=== PATIENT | male | born 1940 ===

== ENCOUNTER 2022-10-07 14:00 | Inpatient (IN) | payer MEDICARE, OTHER ==
[~2022-10-07] VITALS: Ht 177.8 cm; Wt 90.7 kg
[2022-10-07 10:00] VITALS: BP 143/75
[2022-10-07] MEDS ORDERED: REMEDY ESSENTIAL ZINC PASTE 113 GM TOP PRN (21:30)
--- NOTE | 2022-10-07 22:00 | NUR ---
Received a 82 yr old male from [facility] with an admitting diagnosis of S/P L5- S1 lumbar fusion with instrumentation on (09/28) and acute metabolic encepalopathy. AAOx3-4 with some periods of forgetfulness. All needs attended. VSS No acute distress noted. Voiding in the urinal. Low back incision clean dry and intact with dressing placed. Bilateral upper extremities has multiple bruises noted. Left arm has a skin tear with steristrips and dressing. Denies any pain nor any discomfort. Patient is hard of hearing, wears hearing aids. Patient has history of CAD, neuropathy, GERD, Anemia, Kidney Ca, HTN. Will monitor patient. Dr Nance aware of patient's admission and was able to reconcile meds. Dr Mackay also aware of patient's admission. Fall precautions maintained. Siderails up for safety.
[2022-10-07] MEDS ORDERED: MIRT7.5T10 PO (23:24)
[2022-10-07] MEDS ORDERED: DOCU100T2 PO (23:24)
[2022-10-07] MEDS ORDERED: ACET-73 PO (23:24)
[2022-10-07] MEDS ORDERED: SENN-18 PO (23:24)
[2022-10-07] MEDS ORDERED: CARI350T27 PO (23:24)
[2022-10-07] MEDS ORDERED: CHLO50TA13 PO (23:24)
[2022-10-07] MEDS ORDERED: IRBE300T19 PO (23:24)
[2022-10-07] MEDS ORDERED: OMEP20CA15 PO (23:24)
[2022-10-07] MEDS ORDERED: AMLO10TA59 PO (23:24)
[2022-10-07] MEDS ORDERED: HYDR-4209 PO (23:24)
[2022-10-07] MEDS ORDERED: POTA99TA16 PO (23:24)
[2022-10-07] MEDS ORDERED: LAMO150T2 PO (23:24)
[2022-10-07] MEDS ORDERED: MAG30ORA PO (23:24)
[2022-10-07] MEDS ORDERED: CLIN300C12 PO (23:24)
[2022-10-07] MEDS ORDERED: ONDA-104 PO (23:24)
[2022-10-07] MEDS ORDERED: chlorproMAZINE 25 MG TABLET PO PRN (23:30)
[2022-10-07] MEDS ORDERED: OXYCODONE HCL 5 MG TABLET PO PRN (23:45)
[2022-10-07] MEDS ORDERED: ACETAMINOPHEN 325 MG TABLET PO PRN (23:45)
[2022-10-08 04:36] VITALS: BP 144/58
[2022-10-08] MEDS: DOCUSATE SODIUM 250 MG CAPSULE PO SCH ×3 (06:57→17:28)
[2022-10-08] MEDS: CLINDAMYCIN HCL 300 MG CAPSULE PO SCH ×3 (06:57→21:08)
[2022-10-08 08:00] VITALS: BP 138/70
[2022-10-08] MEDS: LOSARTAN POTASSIUM 50 MG TABLET PO SCH (08:28)
[2022-10-08] MEDS: AMLODIPINE 10 MG TABLET PO SCH (08:29)
[2022-10-08] MEDS ORDERED: LAMOTRIGINE 100 MG TABLET PO SCH ×2 (09:00)
--- NOTE | 2022-10-08 09:36 | NUR ---
0730-Rec'd patient in bed, awake, A/Ox3, verbally communicative, on R/A, no respiratory distress/cough noted; patient denies pain. Bed side table at reach with all needed items in place. Fac. phone accessible to patient and in functioning order. Encouraged patient to use call light for help when needed with good understanding. Patient [place], uses hearing aids. 0900-Scheduled medication administered as ordered; regarding Lamictal, per patient he does not take generic form due to ASE, asked patient what side effects he has. Patient stated generic Lamictal takes his taste away and that he brought his own bottle of Lamictal. Pharmacy was notified Lamictal issues and per pharmacy will provide what patient brought. Lamotrigine/Lamictal extracted from Fac. Ommi was wasted. Pharmacy was notified.
[2022-10-08] MEDS ORDERED: CHOL400D8 PO (11:50)
[2022-10-08] MEDS ORDERED: BALS60OI TP (11:50)
[2022-10-08] MEDS ORDERED: NEOM28.38 TP (11:50)
[2022-10-08] MEDS: CHOLECALCIFEROL 1,000 UNIT TABLET PO SCH (12:10)
[2022-10-08] MEDS: LAMICTAL 150 MG PO SCH ×2 (12:29→17:43)
[2022-10-08] MEDS: BALSAM PERU/CASTOR OIL 60 GM OINT...G. TP SCH ×2 (12:30→17:44)
[2022-10-08] MEDS: NEOMY/BACITRAC/POLYMI OINT 28.35 GM TUBE TP SCH ×2 (12:30→17:44)
[2022-10-08 16:00] VITALS: BP 125/68
[2022-10-08] MEDS ORDERED: METOCLOPRAMIDE HCL 5 MG TABLET PO PRN (17:00)
[2022-10-08] MEDS: ONDANSETRON ODT 4 MG TAB.RAPDIS SL PRN (17:28)
--- NOTE | 2022-10-08 18:04 | NUR ---
Patient was evaluated by rehab for PT/OT skilled services, patient tolerated fairly. Assisted with ADLs and as needed through out the shift. Patient is alert and oriented. [place] & wears hearing aids, is forgetful and intermittent confusion. Reality orientation provided as needed; Patient is incontinent of urine, able to make needs known but not usually promptly or timely. Encouraged and assisted with the urinal & emptied as needed. Patient noted with on and off episodes of hiccups, medicated PRN with ThoraZine with minimal help. Daughter and son (Daryn Delgado) visiting patient during shift. Per daughter what seems to work for the hiccups is Zofran. Dr contreras notified and per MD gilliland to use zofran for hiccups and to DC Thorazine and Reglan. Orders noted and carried out. Patient was medicated PRN with Zofran and effective post reassessment. Assisted patient with ADLs through out the shift as needed. Care provided at routine intervals/PRN. Per Damian, to not interrupt patient during the night & to keep the door closed so he can sleep well. Instructed Damian that unfortunately we can not keep the door closed at all times and rounds need to be done during shifts to check on patient's needs and for fall prevention safety issues, per Daryn he understands.
[2022-10-08 20:23] VITALS: BP 110/56
[2022-10-08] MEDS: SENNOSIDES 1 TABLET PO SCH (20:31)
--- NOTE | 2022-10-09 04:38 | NUR ---
Quiet night. AAOx3-4 with periods of forgetfulness at times. All needs attended and met. Tolerated po meds without any problem. Fall precautions maintained. Siderails up for safety. Incontinent of urine x2. Kept clean and dry. No BM noted this shift. Will monitor patient.
[2022-10-09 04:46] VITALS: BP 105/59
[2022-10-09] MEDS: CLINDAMYCIN HCL 300 MG CAPSULE PO SCH ×3 (05:54→21:48)
[2022-10-09] MEDS: PANTOPRAZOLE SODIUM 40 MG TABLET.DR PO SCH (06:06)
[2022-10-09] MEDS: DOCUSATE SODIUM 250 MG CAPSULE PO SCH ×3 (06:30→16:53)
[2022-10-09 08:00] VITALS: BP 106/62
--- NOTE | 2022-10-09 08:00 | NUR ---
Received patient lying in bed awake, alert and oriented with hard of hearing. No signs of distress, no SOB. Vital signs taken and recorded. Medications given and tolerated. Turn patient to sides as needed Patient was seen by physical therapist, [place] 5/325 tab given as ordered for pain Observed accordingly
[2022-10-09] MEDS: CHOLECALCIFEROL 1,000 UNIT TABLET PO SCH (08:18)
[2022-10-09] MEDS: HYDROCODONE/APAP 5-325MG TABLET PO PRN ×2 (08:18→15:47)
[2022-10-09] MEDS: LAMICTAL 150 MG PO SCH ×2 (08:21→16:53)
[2022-10-09] MEDS: NEOMY/BACITRAC/POLYMI OINT 28.35 GM TUBE TP SCH ×2 (08:21→16:53)
[2022-10-09] MEDS: BALSAM PERU/CASTOR OIL 60 GM OINT...G. TP SCH ×2 (08:22→16:54)
[2022-10-09] MEDS: LOSARTAN POTASSIUM 50 MG TABLET PO SCH (08:26)
[2022-10-09] MEDS: AMLODIPINE 10 MG TABLET PO SCH (08:26)
[2022-10-09] MEDS: ONDANSETRON ODT 4 MG TAB.RAPDIS SL PRN (15:55)
[2022-10-09 16:05] VITALS: BP 116/64
[2022-10-09 20:40] VITALS: BP 122/53
[2022-10-09] MEDS: SENNOSIDES 1 TABLET PO SCH (20:59)
[2022-10-09] MEDS: MIRTAZAPINE 15 MG TABLET PO PRN (21:53)
[2022-10-10 03:52] VITALS: BP 132/63
[2022-10-10] MEDS: CLINDAMYCIN HCL 300 MG CAPSULE PO SCH ×3 (06:03→22:44)
[2022-10-10] MEDS: PANTOPRAZOLE SODIUM 40 MG TABLET.DR PO SCH (06:03)
[2022-10-10 08:03] VITALS: BP 128/71
[2022-10-10] MEDS: CHOLECALCIFEROL 1,000 UNIT TABLET PO SCH (08:30)
[2022-10-10] MEDS: DOCUSATE SODIUM 250 MG CAPSULE PO SCH ×3 (08:30→17:50)
[2022-10-10] MEDS: LOSARTAN POTASSIUM 50 MG TABLET PO SCH (08:36)
[2022-10-10] MEDS: AMLODIPINE 10 MG TABLET PO SCH (08:37)
[2022-10-10] MEDS: ENSURE ENLIVE (VAN) 240 ML LIQUID PO SCH (08:57)
[2022-10-10] MEDS: BALSAM PERU/CASTOR OIL 60 GM OINT...G. TP SCH ×2 (08:58→17:39)
[2022-10-10] MEDS: NEOMY/BACITRAC/POLYMI OINT 28.35 GM TUBE TP SCH ×2 (08:58→17:39)
[2022-10-10] MEDS: LAMICTAL 150 MG PO SCH ×2 (08:59→17:38)
--- NOTE | 2022-10-10 14:40 | NUR ---
Patient was found lying comfortable on the floor. Sn, not sure if patient fell of the bed to the floor. A full head to toe assessment done. There's no sign of injuries to head nor elbows. Skin appears to be intact. Dr. Manzanares notified via text message, awaiting to what steps to take.
[2022-10-10] MEDS: LIDOCAINE VISCUS 2% 15 ML UDC PO SCH ×3 (15:14→20:53)
--- NOTE | 2022-10-10 15:23 | NUR ---
Per Dr. Manzanraes, for now we will observe patient. Patient is in bed resting comfortable, with no injuries/bruises noted. Patient denies pain when asked. Will continue to monitor.
[2022-10-10 16:42] VITALS: BP 103/57
[2022-10-10 20:24] VITALS: BP 154/74
[2022-10-10] MEDS: SENNOSIDES 1 TABLET PO SCH (20:53)
[2022-10-10] MEDS: MIRTAZAPINE 15 MG TABLET PO PRN (23:06)
[2022-10-11 04:18] VITALS: BP 131/58
[2022-10-11] MEDS: CLINDAMYCIN HCL 300 MG CAPSULE PO SCH ×2 (05:50→14:41)
[2022-10-11] MEDS: PANTOPRAZOLE SODIUM 40 MG TABLET.DR PO SCH (06:11)
[2022-10-11 06:23] LABS: THYROID STIMULATING HORMONE 1.274 mIU/mL (0.358-3.740)
[2022-10-11 06:26] LABS: HEMATOCRIT 32.1 % (36.7-47.1); MEAN CORPUSCULAR HEMOGLOBIN 31.7 uug (23.8-33.4); MEAN CORPUSCULAR VOLUME 95.1 fL (73.0-96.2); PLATELET COUNT (AUTO) 375 K/uL (152-348)
[2022-10-11 06:28] LABS: IRON, SERUM 31 ug/dL (50-175)
[2022-10-11 06:42] LABS: ALANINE AMINOTRANSFERASE 25 U/L (16-63); ALKALINE PHOSPHATASE 100 U/L (50-136); ASPARTATE AMINOTRANSFERASE 23 U/L (15-37); BILIRUBIN,TOTAL 0.4 mg/dL (0.2-1.0); CARBON DIOXIDE 29 mmol/L (21-32); CHLORIDE 100 mmol/L (98-107); CHOLESTEROL 159 mg/dL (<200); CREATININE 1.5 mg/dL (0.6-1.3); GLUCOSE 109 mg/dL (74-106); HDL CHOLESTEROL 43 mg/dL (40-60); MAGNESIUM 2.5 mg/dL (1.8-2.4); PHOSPHOROUS 3.7 mg/dL (2.5-4.9); POTASSIUM 3.9 mmol/L (3.5-5.1); TOTAL PROTEIN, SERUM 6.9 g/dL (6.4-8.2); TRIGLYCERIDES 114 MG/DL (30-150); UREA NITROGEN, BLOOD 19 mg/dL (7-18)
[2022-10-11] MEDS: DOCUSATE SODIUM 250 MG CAPSULE PO SCH ×2 (06:45→12:26)
[2022-10-11 08:34] VITALS: BP 136/70
[2022-10-11 08:42] VITALS: BP 136/70
[2022-10-11] MEDS: LOSARTAN POTASSIUM 50 MG TABLET PO SCH (08:42)
[2022-10-11] MEDS: AMLODIPINE 10 MG TABLET PO SCH (08:42)
[2022-10-11] MEDS: CHOLECALCIFEROL 1,000 UNIT TABLET PO SCH (08:42)
[2022-10-11] MEDS: LAMICTAL 150 MG PO SCH (08:43)
[2022-10-11] MEDS: LIDOCAINE VISCUS 2% 15 ML UDC PO SCH ×2 (08:44→13:22)
[2022-10-11] MEDS: ONDANSETRON ODT 4 MG TAB.RAPDIS SL PRN (08:45)
[2022-10-11] MEDS: ENSURE ENLIVE (VAN) 240 ML LIQUID PO SCH (09:15)
[2022-10-11] MEDS: NEOMY/BACITRAC/POLYMI OINT 28.35 GM TUBE TP SCH (09:15)
[2022-10-11] MEDS: BALSAM PERU/CASTOR OIL 60 GM OINT...G. TP SCH (09:16)
[2022-10-11] MEDS: HYDROCODONE/APAP 5-325MG TABLET PO PRN (10:37)
[2022-10-11 13:04] LABS: *BILIRUBIN,URIN NEGATIVE (NEGATIVE); *BLOOD, URINE NEGATIVE (NEGATIVE); *CLARITY,URINE CLEAR (CLEAR); *COLOR,URINE YELLOW (YELLOW); *KETONES,URINE NEGATIVE (NEGATIVE); *UROBILINOGEN,URINE 0.2 E.U./dl (NORMAL); LEUKOCYTE ESTERASE ,URINE NEGATIVE (NEGATIVE); NITRITE, URINE NEGATIVE (NEGATIVE); PH,URINE 6.5 (5.0-8.0); UGLUCOSE NEGATIVE (NEGATIVE)
[2022-10-11 13:37] LABS: BACTERIA,URINE FEW /HPF (NONE SEEN); SQUAMOUS EPITHELIAL CELL,UR FEW /HPF (NONE SEEN)
[2022-10-11 13:38] LABS: RBC,URINE 0-3 /HPF (0-3); WBC,URINE 0-3 /HPF (0-3)
[2022-10-11] MEDS ORDERED: LORAZEPAM 2 MG/1 ML VIAL IV PRN (14:45)
--- NOTE | 2022-10-11 15:12 | NUR ---
0730-Rec'd patient in bed, resting comfortably, no resp. distress noted. HOB elevated. No facial grimaces noted. Patient denies pain. Skin W/D to the touch, afebrile. Bedside table with needed items in place. Call light within reach, reminded and encouraged patient to use it every time help is needed with good understanding. 0900-Scheduled medication administered as ordered; noted patient with hiccups and c/o nauseous, Zofran PRN for N/V administered as ordered by MD. Will monitor closely. 1000-Patient with episode of vomiting, small undigested food particles, care rendered. Repositioned for comfort and pressure relief. Patient denies GI pain, abdomen is soft and non distended, reg. BS present in all quadrants. Dr. Manzanares was informed of above patient condition, labs results cbc/chem reviewed by MD with CxR, EKG results still pending. 1100-Patient with orders for UA specimen to collect, straight cath patient and obtained UA sample, sent to the lab. 1500-Patient's son, Damian A & daughter visiting patient, provided a copy of POA & signed polst DNR/DNI, per both patient's son/daughter they want only comfort measures for the father. Dr Manzanares was informed of family's wishes and MD able to speak to patient's son and addressed his concerns.
--- NOTE | 2022-10-11 15:25 | NUR ---
IV line placed to rt wrist G 24" procedure explained to patient, aseptic tech. applied patient garcia. well procedure. Ativan PRN administered as ordered by .
--- NOTE | 2022-10-11 17:18 | NUR ---
Patient to be transferred to [facility] care unit as ordered by .
[2022-10-11] MEDS ORDERED: MORPHINE SULFATE PF IV DRIP 100 MG in IV DEXTROSE 5% 96 ML IV PRN ×2 (18:30→18:45)
== END 2022-10-11 19:00 | disposition short-term general hospital (02) | DRG 559 ==
LOC: UNDOADMIN 21:22 → MEDSURG3 21:22 → UNDOADMIN 10-11 17:00 → UNDODISIN 10-11 17:15 → UNDOADMIN 10-11 17:57 → MEDSURG3 10-11 17:57 → UNDODISIN 10-11 18:00
PROVIDERS: ADMIT Physical Medicine & Rehabilitation Pain Medicine; ATTEND Physical Medicine & Rehabilitation Pain Medicine
DX: S32.9XXD Fracture of unspecified parts of lumbosacral spine and pelvis, subsequent encounter for fracture with routine healing (principal); A41.9 Sepsis, unspecified organism; G92.8 Other toxic encephalopathy; N17.0 Acute kidney failure with tubular necrosis; D68.59 Other primary thrombophilia; N18.4 Chronic kidney disease, stage 4 (severe); T81.40XD Infection following a procedure, unspecified, subsequent encounter; Z47.89 Encounter for other orthopedic aftercare; M51.36 Other intervertebral disc degeneration, lumbar region; Z85.528 Personal history of other malignant neoplasm of kidney; Z90.5 Acquired absence of kidney; I12.9 Hypertensive chronic kidney disease with stage 1 through stage 4 chronic kidney disease, or unspecified chronic kidney disease; D64.9 Anemia, unspecified; E66.9 Obesity, unspecified; G62.9 Polyneuropathy, unspecified; G89.29 Other chronic pain; Z68.28 Body mass index [BMI] 28.0-28.9, adult; Z98.1 Arthrodesis status; K21.9 Gastro-esophageal reflux disease without esophagitis; M19.90 Unspecified osteoarthritis, unspecified site
CPT/HCPCS: 36415; 71045; 83550; 83735; 84100; 84443; 85025; 93005; 97535-GO-CO; A4663; A6209; C1758; J2060; Q0161; Q0162

== ENCOUNTER 2022-10-11 18:22 | Inpatient (IN) | payer MEDICARE, OTHER ==
[~2022-10-11] VITALS: Ht 177.8 cm; Wt 90.7 kg
[~2022-10-11 18:22] MED LIST: ACET-73 PO; AMLO10TA59 PO; BALS60OI TP; CARI350T27 PO; CHLO50TA13 PO; CHOL400D8 PO; CLIN300C12 PO; DOCU100T2 PO; HYDR-4209 PO; IRBE300T19 PO; LAMO150T2 PO; MAG30ORA PO; MIRT7.5T10 PO; NEOM28.38 TP; OMEP20CA15 PO; ONDA-104 PO; POTA99TA16 PO; SENN-18 PO
[2022-10-11] MEDS: LORAZEPAM 2 MG/1 ML VIAL IV PRN ×2 (18:59→23:03)
--- NOTE | 2022-10-11 19:04 | NUR ---
Patient was transitioned to [facility] care with orders for Ativan PRN and Morphine drip., First dose of Ativan PRN administered just now. Patient with rapid and heavy RR. Per family they do not want oxygen on the patient. Comfort measures, medications have been addressed by Dr. Manzanares and patient's decision makers Silvana Noyola & Bobo Salgado. Family's wishes and choices respected. Morphine drip pending dose from pharmacy. POLST DNR/DNI signed by RR. Endorsed to incoming relieving RN for proper F/U.
--- NOTE | 2022-10-11 19:25 | NUR ---
Received patient in bed with eyes closed, responsive to verbal and tactile stimuli. Slightly short of breath. Family at bedside. Observed NPO. Comfort care rendered.
[2022-10-11] MEDS: MORPHINE SULFATE IV PRN (19:47)
[2022-10-11] MEDS: DEXTROSE 5% IV PRN (19:47)
[2022-10-12] MEDS: LORAZEPAM 2 MG/1 ML VIAL IV PRN ×2 (04:22→08:28)
[2022-10-12] MEDS: MORPHINE SULFATE IV PRN (05:44)
[2022-10-12] MEDS: DEXTROSE 5% IV PRN (05:44)
--- NOTE | 2022-10-12 06:37 | NUR ---
Lying in bed comfortably throughout the shift, no restlessness noted, no signs of pain/discomfort. Kept clean and dry. Comfort measures provided.
--- NOTE | 2022-10-12 09:55 | NUR ---
Pt suctioned orally with Yankour per family request to reduce gurgling sounds. Pt also suctioned this AM around 0800 by RT.
[2022-10-12] MEDS ORDERED: LORAZEPAM 2 MG/1 ML VIAL IV PRN (10:00)
[2022-10-12] MEDS ORDERED: MORPHINE SULFATE IV PRN (10:00)
[2022-10-12] MEDS ORDERED: DEXTROSE 5% IV PRN (10:00)
--- NOTE | 2022-10-12 10:25 | NUR ---
Pt pronounced at 1015. Family (Dtr Tabatha, Son Damian, Friend Mayra and 2 grandchildren) and RN present at bedside at time of . Pt apneic for 5 minutes, pupils fixed and dilated, no audible heart tones or breath sounds on auscultation with stethoscope for 1 minute. No corneal reflexes. Charge nurse notified at 1017. Dr. Manzanares notified at 1023. [facility] called at 1035, spoke to Angelica. Notified her that the daughter Tabatha said that if the patient can donate anything, that was his wish. Angelica acknowledged and said that they will call back if they need additional information. I gave her our direct number to the 3rd floor. Called [facility] to [facility] per Tabatha's request. Spoke to Gayle at 1040 and had Tabatha call her directly to fill out a release form. Also gave her our phone number.
--- NOTE | 2022-10-12 13:23 | NUR ---
Pt's remains released via [facility] body removal billing representative. Dr. Manzanaers at bedside to speak to dtr Tabatha and friend Mayra just prior to body removal. Body tags in place. Comfort provided to remaining family.
== END 2022-10-12 10:15 | DRG 177 ==
LOC: MEDSURG3 18:35
PROVIDERS: ADMIT Internal Medicine; ATTEND Internal Medicine
DX: J69.0 Pneumonitis due to inhalation of food and vomit (principal); G92.8 Other toxic encephalopathy; J96.01 Acute respiratory failure with hypoxia; N17.0 Acute kidney failure with tubular necrosis; N18.4 Chronic kidney disease, stage 4 (severe); D68.59 Other primary thrombophilia; Z66 Do not resuscitate; Z51.5 Encounter for palliative care; I12.9 Hypertensive chronic kidney disease with stage 1 through stage 4 chronic kidney disease, or unspecified chronic kidney disease; R62.7 Adult failure to thrive; Z90.5 Acquired absence of kidney; Z98.1 Arthrodesis status; Z85.528 Personal history of other malignant neoplasm of kidney; Z74.09 Other reduced mobility; D64.9 Anemia, unspecified; E66.9 Obesity, unspecified; Z68.28 Body mass index [BMI] 28.0-28.9, adult; G89.29 Other chronic pain; K21.9 Gastro-esophageal reflux disease without esophagitis; M19.90 Unspecified osteoarthritis, unspecified site; M51.36 Other intervertebral disc degeneration, lumbar region; I45.10 Unspecified right bundle-branch block; I25.10 Atherosclerotic heart disease of native coronary artery without angina pectoris; I25.2 Old myocardial infarction
CPT/HCPCS: G0378; J2060; J2270; J7040